=== PATIENT | female | born 1965 | race Caucasian/White ===

== ENCOUNTER → 2016-11-01 | Outpatient (CLI) | payer OTHER ==
[~2016-11-01] MED LIST: ATEN50TA2 PO; BUPR150T5; CLAR10CA3 PO; ECOT81TA5 PO; ESCI10TA2; LISINOPRIL-HCTZ; METF1000; SYNT25TA; XARE10TA PO
--- NOTE | 2016-11-02 07:33 | REP ---
RIGHT FOOT SERIES: Four views. HISTORY: Right foot pain. FINDINGS: There is plantar calcaneal spurring and some mild midfoot spurring. Overall mineralization pattern is normal. No bony erosive changes seen. No soft tissue gas is appreciated. IMPRESSION: Mild midfoot and plantar calcaneal spurring. No acute bony abnormality. Signed by Carlos Manuel Rodriguez MD 11/02/2016 08:13 A
== END ==
LOC: M LRY 18:15
PROVIDERS: ATTEND Nurse Practitioner Family
DX: M77.31 Calcaneal spur, right foot (principal)
CPT/HCPCS: 73630; G0463

== ENCOUNTER 2016-11-13 11:16 | Emergency (ER) | payer OTHER ==
[2016-11-13] MEDS ORDERED: BUPR150T5 (11:39)
[2016-11-13] MEDS ORDERED: CLAR10CA3 PO (11:39)
[2016-11-13] MEDS ORDERED: LISINOPRIL-HCTZ (11:39)
[2016-11-13] MEDS ORDERED: SYNT25TA (11:39)
[2016-11-13] MEDS ORDERED: METF1000 (11:39)
[2016-11-13] MEDS ORDERED: ESCI10TA2 (11:39)
[2016-11-13] MEDS ORDERED: ASPIRIN 81 MG CHEW TABLET PO ONE (11:45)
[2016-11-13] MEDS ORDERED: METOPROLOL TART 50 MG TAB PO ONE (11:45)
[2016-11-13 12:12] LABS: BASO # 0.1 K/mm3 (0.0-0.2); BASO % 0.8 % (0.0-1.0); EOS # 0.2 K/mm3 (0.0-0.50); EOS % 2.1 % (0.0-3.0); LARGE UNSTAINED CELL # 0.1 K/mm3 (0.0-0.4); LARGE UNSTAINED CELL % 0.8 % (0.0-4.0); LYMPH # 1.1 K/mm3 (1.5-4.5); LYMPH % 13.2 % (24.0-44.0); MEAN CORPUSCULAR HEMOGLOBIN 27.5 pg (27.0-33.0); MEAN CORPUSCULAR HGB CONC 32.2 g/dl (32.0-36.5); MEAN CORPUSCULAR VOLUME 85.4 fl (80.0-96.0); MONO # 0.2 K/mm3 (0.0-0.8); MONO % 2.9 % (0.0-5.0); NEUTROPHILS # 6.5 K/mm3 (1.8-7.7); NEUTROPHILS % 80.2 % (36.0-66.0); PLATELET COUNT, AUTOMATED 236 k/mm3 (150-450); RED CELL DISTRIBUTION WIDTH 13.9 % (11.5-14.5); WHITE BLOOD COUNT 8.1 K/mm3 (4.0-10.0)
[2016-11-13] MEDS ORDERED: ECOT81TA5 PO (12:15)
--- NOTE | 2016-11-13 12:19 | REP ---
Clinical: Chest Pain. Comparison: 09/19/2008. Findings: Underpenetration due to technique accentuates the pulmonary vasculature and interstitium, and mild pulmonary vascular congestion cannot be excluded. The mediastinum and cardiac silhouette are stable and within normal limits for portable technique. No obvious focal consolidation, effusion, or pneumothorax identified. Skeletal structures are intact. Impression: Cannot exclude mild pulmonary vascular congestion or trace atelectasis. Signed by Isaias Woodson MD 11/13/2016 12:10 P
[2016-11-13 12:20] LABS: INR 1.1
[2016-11-13] MEDS: METOPROLOL 5 MG/5 ML VIAL IV SCH ×3 (12:22→12:55)
[2016-11-13 12:28] LABS: ALBUMIN 3.7 GM/DL (3.2-5.2); ALBUMIN/GLOBULIN RATIO 0.95 (1.00-1.93); ALKALINE PHOSPHATASE 64 U/L (45-117); ALT/SGPT 31 U/L (12-78); ANION GAP 9 MEQ/L (8-16); AST/SGOT 14 U/L (15-37); BILIRUBIN,DIRECT 0.2 MG/DL (0.0-0.2); BILIRUBIN,TOTAL 0.6 MG/DL (0.2-1.0); BLOOD UREA NITROGEN 18 MG/DL (7-18); CALCIUM LEVEL 8.9 MG/DL (8.5-10.1); CARBON DIOXIDE LEVEL 28 MEQ/L (21-32); CHLORIDE LEVEL 102 MEQ/L (98-107); CREATININE FOR GFR 0.86 MG/DL (0.55-1.02); FREE T4 1.32 NG/DL (0.76-1.46); GLOMERULAR FILTRATION RATE > 60.0 (>51); GLUCOSE, FASTING 101 MG/DL (70-105); POTASSIUM SERUM 3.6 MEQ/L (3.5-5.1); SODIUM LEVEL 139 MEQ/L (136-145); TOTAL PROTEIN 7.6 GM/DL (6.4-8.2)
[2016-11-13] MEDS ORDERED: ISOVUE-370 76% 100ML VIAL (Q9967) As Ordered ONE (13:26)
--- NOTE | 2016-11-13 14:06 | REP ---
CT of the chest with IV contrast, CT pulmonary angiography: A note from the x-ray technologist states that the intravenous contrast injection was suspended hardware through the injection site and over pressure and an the injection resumed. There is adequate opacification of the pulmonary arteries. There are no emboli in the pulmonary trunk or in the central pulmonary arteries. There is focal discoid atelectasis anteriorly in the right upper lobe. There is diffuse haziness throughout the lung henderson bilaterally. This is non specific and could represent normal long interspersed by focal areas of bullous formation. Alternatively, the AC lung henderson could represent infiltrates. There are no comparison CT studies to assist with this differentiation. There are no pleural effusions. There is no mediastinal, hilar or axillary lymphadenopathy. The thoracic aorta is unremarkable. Cardiac size is borderline enlarged. There is no pericardial effusion. The visualized upper abdominal contents are unremarkable. Impression: There are no pulmonary emboli. There is diffuse haziness throughout the lung henderson bilaterally, nonspecific in the absence of comparison studies, as discussed above. No adenopathy. No pleural effusion. Borderline cardiac size. Signed by Juan Francisco Sue MD 11/13/2016 01:57 P
[2016-11-13] MEDS ORDERED: XARE10TA PO (14:37)
[2016-11-13] MEDS ORDERED: ATEN50TA2 PO (14:37)
[2016-11-13] MEDS ORDERED: ATENOLOL 50 MG TAB PO ONE ×2 (15:45→17:00)
[2016-11-13 17:00] VITALS: BP 160/80
[2016-11-13] MEDS ORDERED: RIVAROXABAN 20 MG TAB (XARELTO) PO ONE (17:00)
[2016-11-13 17:34] VITALS: BP 139/79
--- NOTE | 2016-11-14 14:20 | ECGEPIP ---
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
== END 2016-11-13 18:15 | disposition home or self-care (01) ==
LOC: EDBD 11:16 → M ED 12:02
DX: I48.91 Unspecified atrial fibrillation (principal)
CPT/HCPCS: 71010; 71275; 80048; 80076; 82550; 82553; 83690; 83880; 84439; 84443; 85025; 85610; 85730; 87040; 93005; 93041; 94760; 96374; 99285; Q9967

== ENCOUNTER → 2017-02-09 | Outpatient (REF) | payer OTHER ==
[~2017-02-09] MED LIST changes: -METF1000; +METF10004
[2017-02-09 18:35] LABS: ALBUMIN 3.7 GM/DL (3.2-5.2); ALKALINE PHOSPHATASE 76 U/L (45-117); ALT/SGPT 24 U/L (12-78); ANION GAP 8 MEQ/L (8-16); AST/SGOT 11 U/L (15-37); BILIRUBIN,TOTAL 0.3 MG/DL (0.2-1.0); BLOOD UREA NITROGEN 17 MG/DL (7-18); CALCIUM LEVEL 9.3 MG/DL (8.5-10.1); CARBON DIOXIDE LEVEL 28 MEQ/L (21-32); CHLORIDE LEVEL 105 MEQ/L (98-107); CHOLESTEROL LEVEL 154 MG/DL (<200); CREATININE FOR GFR 0.84 MG/DL (0.55-1.02); GLOMERULAR FILTRATION RATE > 60.0 (>51); GLUCOSE, FASTING 97 MG/DL (70-105); POTASSIUM SERUM 4.2 MEQ/L (3.5-5.1); SODIUM LEVEL 141 MEQ/L (136-145); TOTAL PROTEIN 7.4 GM/DL (6.4-8.2); TRIGLYCERIDES LEVEL 146 MG/DL (<150)
== END ==
LOC: M SFHCLERA 09:46
PROVIDERS: ATTEND Family Medicine
DX: I10 Essential (primary) hypertension (principal); E11.9 Type 2 diabetes mellitus without complications

== ENCOUNTER 2017-05-13 16:07 | Emergency (ER) | payer OTHER ==
[~2017-05-13] VITALS: Ht 162.6 cm; Wt 181.8 kg
[2017-05-13] MEDS ORDERED: LEVO25TA5 (16:19)
[2017-05-13] MEDS ORDERED: ENTR1TAB (16:19)
[2017-05-13] MEDS ORDERED: ALLO100T (16:19)
[2017-05-13] MEDS ORDERED: DIGO0.25 (16:19)
[2017-05-13] MEDS ORDERED: XARE20TA (16:19)
[2017-05-13] MEDS ORDERED: TOPR200T (16:19)
[2017-05-13] MEDS ORDERED: CHLO125TA (16:19)
[2017-05-13] MEDS ORDERED: NS 1,000 ML IV ONE (18:15)
[2017-05-13] MEDS ORDERED: ONDANSETRON 4MG/2ML VIAL (J2405) IV ONE (18:15)
[2017-05-13 18:25] LABS: CONTROL LINE UCG INT CTR LINE PRESENT
[2017-05-13 18:41] LABS: BASO # 0.1 10^3/uL (0.0-0.2); BASO % 0.7 % (0.0-1.0); EOS # 0.1 10^3/uL (0.0-0.50); EOS % 1.2 % (0.0-3.0); IMMATURE GRANULOCYTE % 0.4 % (0-0); LYMPH # 1.1 10^3/uL (1.5-4.5); LYMPH % 11.4 % (24.0-44.0); MEAN CORPUSCULAR HGB CONC 32.7 g/dl (32.0-36.5); MEAN CORPUSCULAR VOLUME 88.7 fl (80.0-96.0); MONO # 0.3 10^3/uL (0.0-0.8); MONO % 2.9 % (0.0-5.0); NEUTROPHILS # 7.8 10^3/uL (1.8-7.7); NEUTROPHILS % 83.4 % (36.0-66.0); PLATELET COUNT, AUTOMATED 191 10^3/uL (150-450); RED CELL DISTRIBUTION WIDTH 13.1 % (11.5-14.5); WHITE BLOOD COUNT 9.4 10^3/uL (4.0-10.0)
[2017-05-13 18:52] LABS: INR 1.46
[2017-05-13 19:04] LABS: PLT CLUMPS? POS FLAG; POS COUNT POS FLAG
--- NOTE | 2017-05-13 19:21 | REP ---
Clinical: Pelvic pain and vaginal bleeding. Technique: Transabdominal pelvic ultrasound followed by transvaginal examination for better evaluation of the endometrium and adnexa. Findings: Examination is severely limited due to body habitus and associated technical factors. Heterogeneous myomatous anteverted uterus measures 13.9 x 8.5 x 7.1 cm. The endometrial complex is distended by complex material likely hemorrhagic measuring greater than 30 mm. IUD is identified extending into the lower uterine segment/cervix. Ovaries are not visualized. No obvious pelvic free fluid. Impression: 1. Extremely limited examination with enlarged, heterogeneous myomatous uterus. Presumed hemorrhagic debris distends the endocervical canal to greater than 30 mm. IUD identified extending into the lower uterine segment/cervix. 2. Ovaries not visualized. Signed by Isaias Woodson MD 05/13/2017 07:12 P
[2017-05-13 19:45] LABS: ANION GAP 9 MEQ/L (8-16); BLOOD UREA NITROGEN 11 MG/DL (7-18); CALCIUM LEVEL 8.6 MG/DL (8.5-10.1); CARBON DIOXIDE LEVEL 26 MEQ/L (21-32); CHLORIDE LEVEL 101 MEQ/L (98-107); CREATININE FOR GFR 0.81 MG/DL (0.55-1.02); GLOMERULAR FILTRATION RATE > 60.0 (>51); GLUCOSE, FASTING 124 MG/DL (70-105); POTASSIUM SERUM 3.3 MEQ/L (3.5-5.1); SODIUM LEVEL 136 MEQ/L (136-145)
[2017-05-13] MEDS ORDERED: MORPHINE 2 MG/ML 1ML SYRINGE IV ONE (20:15)
[2017-05-13 20:42] VITALS: BP 155/94
[2017-05-13] MEDS ORDERED: NORCOTAB PO (20:50)
== END 2017-05-13 20:51 | disposition home or self-care (01) ==
LOC: M ED 16:07
DX: N93.9 Abnormal uterine and vaginal bleeding, unspecified (principal); R10.2 Pelvic and perineal pain; Z98.84 Bariatric surgery status
CPT/HCPCS: 76830; 76856; 80048; 81001; 84703; 85025; 85610; 93976; 96374; 96375; 99284; J2405

== ENCOUNTER 2017-05-21 14:04 | Inpatient (IN) | payer OTHER ==
[~2017-05-21] VITALS: Ht 162.6 cm; Wt 162.7 kg
[~2017-05-21 14:04] MED LIST changes: +ALLO100T; +CHLO125TA; +DIGO0.25; +ENTR1TAB; +LEVO25TA5; +NORCOTAB PO; +TOPR200T; +XARE20TA
[2017-05-21] MEDS ORDERED: NS 1,000 ML IV ONE ×2 (17:00→18:00)
[2017-05-21 17:17] LABS: ALBUMIN 3.4 GM/DL (3.2-5.2); ALBUMIN/GLOBULIN RATIO 0.97 (1.00-1.93); ALKALINE PHOSPHATASE 52 U/L (45-117); ALT/SGPT 21 U/L (12-78); ANION GAP 8 MEQ/L (8-16); AST/SGOT 9 U/L (7-37); BILIRUBIN,DIRECT < 0.1 MG/DL (0.0-0.2); BILIRUBIN,TOTAL 0.2 MG/DL (0.2-1.0); BLOOD UREA NITROGEN 18 MG/DL (7-18); CARBON DIOXIDE LEVEL 29 MEQ/L (21-32); CHLORIDE LEVEL 101 MEQ/L (98-107); GLOMERULAR FILTRATION RATE > 60.0 (>51); GLUCOSE, FASTING 111 MG/DL (70-105); HCG, SERUM QUANTITATIVE < 1.0 MIU/ML; POTASSIUM SERUM 3.1 MEQ/L (3.5-5.1); SODIUM LEVEL 138 MEQ/L (136-145); TOTAL PROTEIN 6.9 GM/DL (6.4-8.2)
[2017-05-21 17:23] LABS: BASO # 0.1 10^3/uL (0.0-0.2); BASO % 0.7 % (0.0-1.0); EOS # 0.2 10^3/uL (0.0-0.50); EOS % 1.6 % (0.0-3.0); IMMATURE GRANULOCYTE % 1.5 % (0-0); LYMPH # 1.9 10^3/uL (1.5-4.5); LYMPH % 13.5 % (24.0-44.0); MEAN CORPUSCULAR HEMOGLOBIN 28.7 pg (27.0-33.0); MEAN CORPUSCULAR HGB CONC 32.7 g/dl (32.0-36.5); MEAN CORPUSCULAR VOLUME 87.7 fl (80.0-96.0); MONO # 0.5 10^3/uL (0.0-0.8); MONO % 3.8 % (0.0-5.0); NEUTROPHILS # 10.9 10^3/uL (1.8-7.7); NEUTROPHILS % 78.9 % (36.0-66.0); PLATELET COUNT, AUTOMATED 385 10^3/uL (150-450); RED CELL DISTRIBUTION WIDTH 13.2 % (11.5-14.5); WHITE BLOOD COUNT 13.8 10^3/uL (4.0-10.0)
[2017-05-21] MEDS ORDERED: ONDANSETRON 4MG/2ML VIAL (J2405) IV ONE (17:30)
[2017-05-21 17:33] LABS: INR 2.06
[2017-05-21] MEDS ORDERED: LEXA1TAB PO (18:44)
[2017-05-21] MEDS ORDERED: ENTR1TAB PO (18:44)
[2017-05-21] MEDS ORDERED: XARE20TA PO (18:44)
[2017-05-21] MEDS ORDERED: METO-398 PO (18:44)
[2017-05-21] MEDS ORDERED: METF10004 PO (18:44)
[2017-05-21] MEDS ORDERED: BUPR150T3 PO (18:44)
[2017-05-21] MEDS ORDERED: DIGO0.25 PO (18:44)
[2017-05-21] MEDS ORDERED: LORA10TA2 PO (18:44)
[2017-05-21] MEDS ORDERED: CHLO25TA PO (18:44)
[2017-05-21] MEDS ORDERED: ALLO100T PO (18:44)
[2017-05-21] MEDS ORDERED: LEVO25TA34 PO (18:44)
[2017-05-21 20:06] LABS: DIGOXIN LEVEL 1.2 NG/ML (0.5-2.0)
[2017-05-21] MEDS ORDERED: DEXTROSE 50% 50 ML SYRINGE IV PRN (20:15)
[2017-05-21] MEDS ORDERED: GLUCAGON FOR INJ 1 MG VIAL (J1610) SC PRN (20:15)
[2017-05-21] MEDS ORDERED: ONDANSETRON 4MG/2ML VIAL (J2405) IV PRN (20:15)
[2017-05-21] MEDS ORDERED: GLUCOSE 4 GM CHEW TABLET PO PRN (20:15)
[2017-05-21] MEDS ORDERED: ACETAMINOPHEN TAB 650MG DOSE (2X325MG) PO PRN (20:15)
[2017-05-21] MEDS: HumaLOG INSULIN (NovoLOG) PER UNIT SC SCH (21:00)
[2017-05-21] MEDS ORDERED: POTASSIUM CHLORIDE 10 MEQ SR TABLET PO ONE (21:15)
--- NOTE | 2017-05-21 21:29 | HPEPDOC ---
General Date of Admission May 21, 2017 at 20:01 Chief Complaint The patient is a 52-year-old female admitted with a reason for visit of Menorrhagia With Irregular Cycle. History of Present Illness 52-year-old female with past medical history of nonischemic cardiomyopathy diagnosed in October 2016, atrial fibrillation on Xarelto, hypertension, gout, hypothyroidism, diabetes mellitus, morbid obesity, and obstructive sleep apnea on CPAP presented to the ER from her BANK APPRAISER (Dr. Johnson's) office with the chief complaint of increased menstrual bleeding over the last 1 month. The patient states that her menstrual bleeding has increased over the last one week. Lab work drawn from 8 days ago reveals a hemoglobin drop of nearly 5 g. The patient denied any complaints of fevers, chills, chest pain, shortness of breath, palpitations, abdominal pain, or any nausea/vomiting/diarrhea. However, the patient did state generalized weakness and fatigue. The patient will be admitted to the hospitalist service for blood transfusion. A consult has been placed to BANK APPRAISER for further evaluation and management of menstrual bleeding. Home Medications Scheduled Allopurinol (Allopurinol) 100 Mg Tab, 200 MG PO DAILY, (Reported) Bupropion Hcl (Bupropion HCl Xl) 150 Mg Tab, 150 MG PO DAILY, (Reported) Chlorthalidone (Chlorthalidone) 25 Mg Tab, 12.5 MG PO DAILY, (Reported) Digoxin (Digoxin) 250 Mcg Tab, 250 MCG PO DAILY, (Reported) Escitalopram Oxalate (Lexapro) 10 Mg Tab, 10 MG PO DAILY, (Reported) Levothyroxine Sodium (Levoxyl) 25 Mcg Tab, 25 MCG PO DAILY, (Reported) Loratadine (Loratadine) 10 Mg Tab, 10 MG PO DAILY, (Reported) Metformin Hydrochloride (Metformin HCl) 1,000 Mg Tab, 1,000 MG PO BID, (Reported ) Metoprolol Succinate (Metoprolol Succinate ER) 200 Mg Tab, 200 MG PO DAILY, ( Reported) Rivaroxaban (Xarelto) 20 Mg Tab, 20 MG PO DAILY, (Reported) Sacubitril/Valsartan (Entresto 24-26 mg) 1 Tab Tab, 1 TAB PO BID, (Reported) Allergies Coded Allergies: Sulfate (Verified Allergy, Unknown, 05/21/17) Past Medical History Medical History As noted in HPI. Surgical History STOMACH STAPLE 1986 MARTINA STALLWORTH 1987 GALLBLADDER REMOVED 1990 #2 - C - SECTIONS LEFT AND RIGHT CARPEL TUNNEL SINUS Social History * Smoker: Denies Alcohol: occationally Drugs: denies Review of Symptoms Other systems 10 point review of systems negative unless otherwise specified in HPI. Physical Examination General Exam: Positive: Alert, Cooperative, No Acute Distress, Other (morbidly obese) ENT Exam: Positive: Atraumatic, Mucous membr. moist/pink Neck Exam: Negative: JVD Chest Exam: Positive: Clear to auscultation, Normal air movement Heart Exam: Positive: Rate Normal, Irregular Rhythm, Normal S1, Normal S2 Telemetry: Positive: Atrial fibrillation Abdomen Exam: Positive: Soft, Negative: Tenderness Extremity Exam: Negative: Tenderness Psych Exam: Positive: Oriented x 3 Vital Signs Vital Signs Date Time Temp Pulse Resp B/P (MAP) Pulse Ox O2 Delivery O2 Flow Rate FiO2 05/21/17 21:04 70 20 96 05/21/17 20:45 110/52 (71) 05/21/17 14:04 97.9 Room Air Laboratory Data Labs 24H Laboratory Tests 2 05/21/17 16:42: Immature Granulocyte % (Auto) 1.5H, White Blood Count 13.8H, Red Blood Count 3.10L, Hemoglobin 8.9L, Hematocrit 27.2L, Mean Corpuscular Volume 87.7, Mean Corpuscular Hemoglobin 28.7, Mean Corpuscular Hemoglobin Concent 32.7, Red Cell Distribution Width 13.2, Platelet Count 385, Neutrophils (%) (Auto) 78.9H, Lymphocytes (%) (Auto) 13.5L, Monocytes (%) (Auto) 3.8, Eosinophils (%) (Auto) 1.6, Basophils (%) (Auto) 0.7, Neutrophils # (Auto) 10.9H, Lymphocytes # (Auto) 1.9, Monocytes # (Auto) 0.5, Eosinophils # (Auto) 0.2, Basophils # (Auto) 0.1, Immature Granulocyte # (Auto) 0.2H, Nucleated Red Blood Cells % (auto) 0.0, Prothrombin Time 23.9H, Prothromb Time International Ratio 2.06, Activated Partial Thromboplast Time 38.8H, Anion Gap 8, Glomerular Filtration Rate > 60.0 , Calcium Level 9.0, Aspartate Amino Transf (AST/SGOT) 9, Alanine Aminotransferase (ALT/SGPT) 21, Alkaline Phosphatase 52, Total Bilirubin 0.2, Direct Bilirubin < 0.1, Total Creatine Kinase 35, Creatine Kinase MB 1.0, Creatine Kinase MB Relative Index 2.85, Troponin I < 0.02, Total Protein 6.9, Albumin 3.4, Albumin/Globulin Ratio 0.97L, Human Chorionic Gonadotropin, Quant < 1.0, Digoxin Level 1.2 CBC/BMP Laboratory Tests 05/21/17 16:42 Red Blood Count 3.10 L, Mean Corpuscular Volume 87.7, Mean Corpuscular Hemoglobin 28.7, Mean Corpuscular Hemoglobin Concent 32.7, Red Cell Distribution Width 13.2, Neutrophils (%) (Auto) 78.9 H, Lymphocytes (%) (Auto) 13.5 L, Monocytes (%) (Auto) 3.8, Eosinophils (%) (Auto) 1.6, Basophils (%) ( Auto) 0.7, Neutrophils # (Auto) 10.9 H, Lymphocytes # (Auto) 1.9, Monocytes # ( Auto) 0.5, Eosinophils # (Auto) 0.2, Basophils # (Auto) 0.1 Plan / VTE VTE Prophylaxis Ordered?: Yes Plan Plan Menorrhagia Hgb dropped from 13.6 to 8.9 over the last 8 days 2 Units of PRBC's ordered, we will serially trend H&H Xarelto held---I did speak to the patient's Stamping Die Try Out Worker, Dr. Rosenbaum about the patient's current clinical scenario--he has advised that we hold the patient's anticoagulation at this time. He reports that the patient was initially noted to have nonischemic cardiomyopathy in October 2016, however a subsequent stress test has been negative. In addition, the patient did have an echocardiogram done about one month ago, which he states reports an improvement of the EF to near normal limits (50%) after optimization of medical therapy. He has cleared the patient for possible D&C and/or Hysteroscopy. BANK APPRAISER consulted Hypertension, stable Continue regimen as ordered Atrial Fibrillation Rate controlled on Metoprolol, Digoxin Xarelto held as noted above Nonischemic CMP Patient's EF has improved to near normal EF (50%) on repeat ECHO 1 month ago with medical treatment according to patient's Stamping Die Try Out Worker Dr. Rosenbaum Cont meds as ordered Gout Continue allopurinol Hypothyroidism Continue levothyroxine Diabetes mellitus ISS ordered Morbid obesity Complicating medical care Obstructive sleep apnea May use own CPAP DVT Prophylaxis SCDs/TEDs The patient will be admitted under the service of Dr. Graham, who will begin to follow the patient on 05/22/17 at 7 AM. RUCHI GEE MD May 21, 2017 21:29
[2017-05-21 22:30] VITALS: BP 139/64
[2017-05-21] MEDS: ENTRESTO 24-26MG TABLET (SACUBITRIL/VALSARTAN) PO SCH (23:32)
[2017-05-22 04:21] LABS: MEAN CORPUSCULAR HEMOGLOBIN 29.4 pg (27.0-33.0); MEAN CORPUSCULAR HGB CONC 33.2 g/dl (32.0-36.5); MEAN CORPUSCULAR VOLUME 88.5 fl (80.0-96.0); RED CELL DISTRIBUTION WIDTH 13.1 % (11.5-14.5); WHITE BLOOD COUNT 10.5 10^3/uL (4.0-10.0)
[2017-05-22 04:38] LABS: PLATELET COUNT, AUTOMATED 265 10^3/uL (150-450)
[2017-05-22 05:05] LABS: ALBUMIN 2.9 GM/DL (3.2-5.2); ALBUMIN/GLOBULIN RATIO 0.88 (1.00-1.93); ALKALINE PHOSPHATASE 52 U/L (45-117); ALT/SGPT 18 U/L (12-78); ANION GAP 7 MEQ/L (8-16); AST/SGOT 7 U/L (7-37); BILIRUBIN,TOTAL 0.2 MG/DL (0.2-1.0); BLOOD UREA NITROGEN 17 MG/DL (7-18); CALCIUM LEVEL 8.1 MG/DL (8.5-10.1); CARBON DIOXIDE LEVEL 29 MEQ/L (21-32); CHLORIDE LEVEL 104 MEQ/L (98-107); CREATININE FOR GFR 1.02 MG/DL (0.55-1.02); GLOMERULAR FILTRATION RATE > 60.0 (>51); GLUCOSE, FASTING 106 MG/DL (70-105); MAGNESIUM LEVEL 1.2 MG/DL (1.8-2.4); POTASSIUM SERUM 3.2 MEQ/L (3.5-5.1); SODIUM LEVEL 140 MEQ/L (136-145); TOTAL PROTEIN 6.2 GM/DL (6.4-8.2)
[2017-05-22] MEDS: LEVOTHYROXINE 25MCG TABLET (0.025MG) PO SCH (05:55)
[2017-05-22 06:00] VITALS: BP 134/64
[2017-05-22] MEDS: POTASSIUM CHLORIDE 10 MEQ SR TABLET PO SCH ×2 (06:28→08:44)
[2017-05-22] MEDS: HumaLOG INSULIN (NovoLOG) PER UNIT SC SCH ×4 (07:30→20:22)
--- NOTE | 2017-05-22 08:14 | ECGEPIP ---
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
[2017-05-22] MEDS: METOPROLOL SUCC (TopROL XL) 100MG *XL* TAB PO SCH (08:43)
[2017-05-22] MEDS: DIGOXIN 0.25 MG TAB PO SCH (08:44)
[2017-05-22] MEDS: ENTRESTO 24-26MG TABLET (SACUBITRIL/VALSARTAN) PO SCH ×2 (09:00→20:20)
[2017-05-22] MEDS: MAG SULF 1GM/100ML (MAG RUN) 1 GM in APPROPRIATE DILUENT 1 EA IV SCH ×2 (10:46→11:57)
--- NOTE | 2017-05-22 11:17 | IPN ---
DATE: 05/22/2017 Patient seen and examined at the bedside. Chart has been reviewed. This morning, the patient has no complaints of chest pain, pressure or tightness, shortness of breath, lightheadedness, palpitations, or generalized weakness. She feels much improved from yesterday. She has received 3 units of red blood cell (RBC) transfusion, currently with hemoglobin of 9.1 and hematocrit 26.9. She states that she has not soaked one pad since yesterday. Vitals: Temperature 97.8, pulse 67, respiratory rate 18, blood pressure 134/64, 98% on room air. Generally, the patient is awake, alert and oriented times three. Anicteric sclerae. No jaundice. Slight pallor. Dry mucous membranes. Neck is supple. Full range of motion. No cervical lymphadenopathy or thyromegaly. Thick neck. Lungs clear to auscultation. No wheezing, rales or rhonchi. Heart: S1, S2. Sinus rhythm. Abdomen is obese, soft, nontender, nondistended. Positive bowel sounds. Extremities: No cyanosis, clubbing. Skin: Warm, dry, well perfused. LABORATORY DATA: White count 10.5, hemoglobin 9.1, hematocrit 26.9, platelet count 265. Sodium 140, potassium 3.2, chloride 104, bicarbonate 29, BUN 17, creatinine 1, glucose 106, magnesium 1.2. Albumin 2.9. Pelvic ultrasound on 05/13/2017 presumed hemorrhagic debris distends the endocervical canal to greater than 30 mm. IUD identified in lower uterine segment/cervix. Ovaries are not visualized. ASSESSMENT AND PLAN: This is a 52-year-old female with history of nonischemic cardiomyopathy diagnosed in October 2016, atrial fibrillation on chronic Xarelto, hypertension, gout, hypothyroidism, diabetes, morbid obesity, and obstructive sleep apnea on C-PAP who presented to the emergency room (ER) from Dr. Johnson's office who complains of menorrhagia over the past month, increasing weakness, hemoglobin dropped to 5, and patient is admitted under the hospitalist service for the following issues: 1. Acute blood loss anemia secondary to menorrhagia. Status post 3 units or red blood cell transfusion. The patient has baseline hemoglobin of 13.6. Xarelto had been held. Advise that we hold anticoagulation. The patient was known to have nonischemic cardiomyopathy in October 2016, but subsequent stress test had been negative. An echo a month ago showed improvement in ejection fraction to normal of 50% after optimization with medical therapy and clear the patient for dilation and curettage (D and C) and possible hysteroscopy. OB-NATURAL SCIENCE CURATOR has been consulted for menorrhagia. 2. Hypertension. Stable. 3. Atrial fibrillation, rate controlled on metoprolol and digoxin. Xarelto held due to acute blood loss anemia from menorrhagia and ischemic cardiomyopathy. Ejection fraction improved on repeat echo, ejection fraction 50% a month ago with medical treatment according to patient's cash register mechanic Dr. Rosenbaum. 4. Gout, on allopurinol. 5. Hypothyroidism. Levothyroxine. 6. Type 2 diabetes. On sliding scale. Hyperglycemic protocol. 7. Morbid obesity. Body mass index (BMI) 66.2. 8. History of obstructive sleep apnea (TESSA). Continue on home C-PAP and TESSA protocol.
[2017-05-22] MEDS: ALLOPURINOL 100 MG TAB PO SCH (11:57)
[2017-05-22] MEDS: buPROPion **XL** TABLET 150MG (WELLBUTRIN XL) PO SCH (11:57)
[2017-05-22] MEDS: ESCITALOPRAM OXALATE 10 MG TAB (LEXAPRO) PO SCH (11:57)
[2017-05-22] MEDS: LORATADINE 10 MG TAB PO SCH (11:57)
[2017-05-22 13:30] VITALS: BP 125/71
[2017-05-22] MEDS ORDERED: MEGE40TA GT (14:14)
[2017-05-22] MEDS ORDERED: FERR325T3 PO (14:38)
[2017-05-22] MEDS ORDERED: VITA500T88 PO (14:38)
[2017-05-22] MEDS ORDERED: SENO17.2 PO (14:38)
[2017-05-22] MEDS ORDERED: MEGE40TA PO (14:42)
[2017-05-22 15:11] LABS: MAGNESIUM LEVEL 1.8 MG/DL (1.8-2.4); POTASSIUM SERUM 3.9 MEQ/L (3.5-5.1)
[2017-05-22 15:30] VITALS: BP 131/68
[2017-05-22] MEDS: MEGESTROL 40 MG TAB PO SCH (16:45)
--- NOTE | 2017-05-22 17:10 | CR ---
DATE OF CONSULTATION: 05/22/2017 REASON FOR CONSULTATION: Acute bleeding with a history of menometrorrhagia. HISTORY: Lorri is a 52-year-old female with morbid obesity and multiple chronic medical issues, currently has a diagnosis of atrial fibrillation on Xarelto. She also has a history of diabetes, hypothyroidism, chronic hypertension, chronic obstructive pulmonary disease (COPD), and gout. She presented to the office yesterday for evaluation after being seen in the emergency room for bleeding. She had an acute episode of bleeding and drop of her hemoglobin x 5 grams. She was then admitted to the hospital for blood transfusion and further monitoring and possible D and C. Upon my evaluation of her this morning, she had received 3 units of packed red blood cells (RBC). Her hemoglobin was 9.1 over 26.9. However her bleeding has completely decreased to the point that she has not soaked a pad since her admission. PAST MEDICAL HISTORY: Her chart completely reviewed. She is being seen by cardiology Dr. Rosenbaum and has had an echocardiogram done few months ago which was a 50% ejection fraction. A complete review of her chart was done. PHYSICAL EXAMINATION: Vital signs: Her blood pressure was 134/64, pulse 67, temperature was 97.8. She is a morbidly obese, very pleasant female, in no acute distress. Her abdomen was soft, nontender, nondistended. Extremities: No clubbing, cyanosis or edema. Vaginal exam done. The patient had a pad on with a scant amount of bleeding. Her vagina inspected. No gross bleeding. No evidence of any clot. She does have mild oozing at the cervical os. Her ultrasound done on 05/13/2017 reviewed and shows an enlarged uterus, approximately 13-14 cm in size with a thickened endometrium consistent with blood products. She does have an IUD in place that placed approximately 3 years ago. The string was not visualized on examination, but the IUD was seen on the ultrasound. ASSESSMENT 1. Menometrorrhagia with acute bleed. 2. Anemia secondary to acute bleeding. 3. Nonischemic cardiomyopathy diagnosed in October 2016. 4. Atrial fibrillation, on chronic Xarelto. 5. Hypertension. 6. Gout. 7. Hypothyroidism. 8. Diabetes. 9. Morbid obesity. 10. Obstructive sleep apnea, on C-PAP. PLAN: After extensive counseling with the hospitalist as well as Dr. Rosenbaum, a decision was made not to take this patient to the operating room at this point given that her bleeding has improved. She will need further outpatient evaluation and future plan of an endometrial biopsy followed by a hysterectomy. Given the patient's current medical condition it is felt that it would be beneficial for the patient to be optimized from a medical and cardiac standpoint prior to taking her to the operating room and if at all possible minimize the amount of time she is placed under anesthesia. This was discussed with the patient and her mother in great detail. Both agreed to followup in the office for possible endometrial biopsy to rule out any endometrial cancer or abnormal cells and she will then proceed to hysterectomy down the road. At this point she is offered a script for Megace to help keep the bleeding from reoccurring, however, she is aware that if this does not work for her she will need to return immediately and possibly have emergent surgery if need be. The at this point the patient is okay to be discharged from a DAIRY FEED MIXING OPERATOR standpoint. She will followup in the office in approximately 4-5 days. Health Services thank you
[2017-05-22 22:00] VITALS: BP 132/66
[2017-05-22 23:33] LABS: ANION GAP 6 MEQ/L (8-16); BLOOD UREA NITROGEN 15 MG/DL (7-18); CALCIUM LEVEL 8.3 MG/DL (8.5-10.1); CARBON DIOXIDE LEVEL 32 MEQ/L (21-32); CHLORIDE LEVEL 103 MEQ/L (98-107); CREATININE FOR GFR 0.94 MG/DL (0.55-1.02); GLOMERULAR FILTRATION RATE > 60.0 (>51); GLUCOSE, FASTING 109 MG/DL (70-105); MAGNESIUM LEVEL 1.8 MG/DL (1.8-2.4); POTASSIUM SERUM 3.5 MEQ/L (3.5-5.1); SODIUM LEVEL 141 MEQ/L (136-145)
[2017-05-23] MEDS: LEVOTHYROXINE 25MCG TABLET (0.025MG) PO SCH (05:49)
[2017-05-23 06:00] VITALS: BP 128/60
[2017-05-23 06:17] LABS: ANION GAP 6 MEQ/L (8-16); BLOOD UREA NITROGEN 14 MG/DL (7-18); CARBON DIOXIDE LEVEL 30 MEQ/L (21-32); CHLORIDE LEVEL 106 MEQ/L (98-107); CREATININE FOR GFR 0.79 MG/DL (0.55-1.02); GLOMERULAR FILTRATION RATE > 60.0 (>51); GLUCOSE, FASTING 113 MG/DL (70-105); MAGNESIUM LEVEL 1.7 MG/DL (1.8-2.4); POTASSIUM SERUM 3.3 MEQ/L (3.5-5.1); SODIUM LEVEL 142 MEQ/L (136-145)
[2017-05-23] MEDS: ESCITALOPRAM OXALATE 10 MG TAB (LEXAPRO) PO SCH (07:53)
[2017-05-23] MEDS: ENTRESTO 24-26MG TABLET (SACUBITRIL/VALSARTAN) PO SCH (07:54)
[2017-05-23] MEDS: buPROPion **XL** TABLET 150MG (WELLBUTRIN XL) PO SCH (07:54)
[2017-05-23] MEDS: DIGOXIN 0.25 MG TAB PO SCH (07:54)
[2017-05-23] MEDS: MEGESTROL 40 MG TAB PO SCH (07:54)
[2017-05-23 07:55] VITALS: BP 128/60
[2017-05-23] MEDS: LORATADINE 10 MG TAB PO SCH (07:55)
[2017-05-23] MEDS: ALLOPURINOL 100 MG TAB PO SCH (07:55)
[2017-05-23] MEDS: METOPROLOL SUCC (TopROL XL) 100MG *XL* TAB PO SCH (07:55)
[2017-05-23] MEDS: HumaLOG INSULIN (NovoLOG) PER UNIT SC SCH ×2 (07:56→13:01)
[2017-05-23] MEDS ORDERED: INFLUENZA QUADRIVALENT PF VACCINE 0.5ML SYRINGE (90686) IM ONE (09:00)
[2017-05-23] MEDS ORDERED: MAG SULF 1GM/100ML (MAG RUN) 1 GM in APPROPRIATE DILUENT 1 EA IV ONE (10:00)
[2017-05-23] MEDS ORDERED: POTASSIUM CHLORIDE 10 MEQ SR TABLET PO ONE (10:00)
--- NOTE | 2017-05-23 14:02 | DSES ---
DATE OF ADMISSION: 05/21/2017 DATE OF DISCHARGE: CONSULTANTS DURING THIS ADMISSION: Dr. Neo Johnson, OB-DITCHER OPERATOR. PREDATORY GAME HUNTER: Dr. Rosenbaum has been made aware of patient's admission and had been in consult by telephone, but not formally. PRIMARY DISCHARGE DIAGNOSES: 1. Menometrorrhagia. 2. Acute blood anemia requiring four units of red blood cell transfusion. 3. History of atrial fibrillation on chronic Eliquis. 4. Nonischemic cardiomyopathy with improvement in ejection fraction (EF) of 50%. 5. Hypertension. 6. Gout. 7. Hypothyroidism. 8. Morbid obesity with obstructive sleep apnea on CPAP, follows with information assurance manager. 9. Type 2 diabetes. DISCHARGE MEDICATIONS: - vitamin C 500 mg daily - ferrous sulfate 325 mg by mouth twice a day - megestrol 40 mg daily - Senokot 17.2 mg by mouth daily for constipation - allopurinol 200 daily - bupropion 150 mg daily - chlorthalidone 12.5 mg daily - digoxin 250 mcg daily - Lexapro 10 mg daily - levothyroxine 25 mcg daily - loratadine 10 mg daily - metformin 1 gram twice a day - metoprolol 200 daily - ENTRESTO 1 tablet by mouth twice a day The patient's Xarelto has been discontinued temporarily due to recent acute blood loss anemia requiring 4 units of red blood cell transfusion due to menorrhagia. HOSPITAL COURSE: This is a 52-year-old female with history of nonischemic cardiomyopathy and EF of 50%, atrial fibrillation on chronic Xarelto, diabetes, hypertension, hypothyroidism, gout, and obstructive sleep apnea on CPAP who presents to the emergency room after seeing her industrial roof plumber due to menometrorrhagia with acute bleeding with a drop of hemoglobin of 5 grams. The patient was sent to the emergency room for blood transfusion and further monitoring and possible dilation and curettage (D and C). The patient received 4 units of red blood cell (RBC) transfusion with improvement in symptoms. The patient was seen by Dr. Johnson. Since the patient's bleeding has improved, there is no need for emergent hysterectomy. Plans for the future are endometrial biopsy followed by hysterectomy. The patient will need to be medically optimized and will need to see her factory maintenance technician for formal medical clearance. At this time, the patient was started on Megace 40 mg daily, iron and vitamin supplements. Hemoglobin and hematocrit had been stable and the patient is stable for discharge. She is ambulating well with no symptoms. LABORATORY DATA ON DISCHARGE: White count 10.5, hemoglobin 8.6, hematocrit 26, sodium 142, potassium 3.3, chloride 106, bicarbonate 30, BUN 14, creatinine 0.79, glucose 113, magnesium 1.7. IMAGING STUDIES: Pelvic ultrasound 05/13/2017: Extremely limited exam with enlarged heterogeneous myomatous uterus, presume hemorrhagic debris distends endocervical canal to greater than 30 mm, IUD identified extending into the lower uterine segment or cervix, ovaries not visualized. TIME SPENT ON DISCHARGE: 30 minutes.
== END 2017-05-23 15:30 | disposition home or self-care (01) | DRG 812 ==
LOC: M ED 14:04 → M ED INP 20:01 → M MS4PR 22:27 → M MSPAV 05-22 15:29
PROVIDERS: ADMIT Internal Medicine; ATTEND General Practice
PROC: 30253N1 (ICD-10-PCS; principal; 2017-05-21)
DX: D62 Acute posthemorrhagic anemia (principal); Z68.44 Body mass index [BMI] 60.0-69.9, adult; I42.9 Cardiomyopathy, unspecified; N92.0 Excessive and frequent menstruation with regular cycle; I48.91 Unspecified atrial fibrillation; I10 Essential (primary) hypertension; M10.9 Gout, unspecified; E03.9 Hypothyroidism, unspecified; E11.9 Type 2 diabetes mellitus without complications; E66.01 Morbid (severe) obesity due to excess calories; G47.33 Obstructive sleep apnea (adult) (pediatric); Z79.84 Long term (current) use of oral hypoglycemic drugs; Z79.01 Long term (current) use of anticoagulants; Z79.899 Other long term (current) drug therapy

== ENCOUNTER → 2017-06-12 | Outpatient (CLI) | payer OTHER ==
[~2017-06-12] MED LIST changes: +ALLO100T PO; +BUPR150T3 PO; +CHLO25TA PO; +DIGO0.25 PO; +ENTR1TAB PO; +FERR325T3 PO; +LEVO25TA34 PO; +LEXA1TAB PO; +LORA10TA2 PO; +MEGE40TA GT; +MEGE40TA PO; +METF10004 PO; +METO-398 PO; +SENO17.2 PO; +VITA500T88 PO; +XARE20TA PO
--- NOTE | 2017-06-12 18:04 | REP ---
Clinical: Pain without trauma. Technique: AP, lateral, bilateral oblique views of the right ankle. Findings: No acute fracture dislocation. Joint spaces and ankle mortise are intact and within normal limits. Lateral view demonstrates pes planus. No significant periarticular or soft tissue calcifications identified. Impression: Pes planus. Relatively age-appropriate examination. Signed by Isaias Woodson MD 06/12/2017 02:56 P
--- NOTE | 2017-06-12 18:13 | REP ---
Clinical: Right foot pain Technique: AP, lateral, bilateral oblique views right foot . Findings: The osseous structures and joint spaces are intact and relatively normal for age. There is no evidence for acute fracture or dislocation. Mild subchondral sclerosis and joint space narrowing involving the first metatarsophalangeal joint and interphalangeal joint is appreciated. Lateral view demonstrates mild pes planus. Impression: Mild degenerative changes primarily involving the first toe. Mild pes planus. Signed by Isaias Woodson MD 06/12/2017 03:05 P
== END ==
LOC: M WUC 12:22
PROVIDERS: ATTEND Physician Assistant
DX: M25.571 Pain in right ankle and joints of right foot (principal)

== ENCOUNTER → 2017-06-13 | Outpatient (CLI) | payer OTHER ==
[2017-06-13 11:41] LABS: BASO # 0.1 10^3/uL (0.0-0.2); BASO % 0.8 % (0.0-1.0); EOS # 0.2 10^3/uL (0.0-0.50); EOS % 1.6 % (0.0-3.0); IMMATURE GRANULOCYTE % 0.5 % (0-0); LYMPH # 1.4 10^3/uL (1.5-4.5); LYMPH % 13.1 % (24.0-44.0); MEAN CORPUSCULAR HEMOGLOBIN 27.3 pg (27.0-33.0); MEAN CORPUSCULAR HGB CONC 31.6 g/dl (32.0-36.5); MEAN CORPUSCULAR VOLUME 86.5 fl (80.0-96.0); MONO # 0.5 10^3/uL (0.0-0.8); MONO % 4.8 % (0.0-5.0); NEUTROPHILS # 8.4 10^3/uL (1.8-7.7); NEUTROPHILS % 79.2 % (36.0-66.0); PLATELET COUNT, AUTOMATED 401 10^3/uL (150-450); RED CELL DISTRIBUTION WIDTH 13.2 % (11.5-14.5); WHITE BLOOD COUNT 10.7 10^3/uL (4.0-10.0)
[2017-06-13 12:24] LABS: ALBUMIN 3.7 GM/DL (3.2-5.2); ALBUMIN/GLOBULIN RATIO 0.97 (1.00-1.93); ALKALINE PHOSPHATASE 64 U/L (45-117); ALT/SGPT 15 U/L (12-78); ANION GAP 11 MEQ/L (8-16); AST/SGOT 4 U/L (7-37); BILIRUBIN,TOTAL 0.3 MG/DL (0.2-1.0); BLOOD UREA NITROGEN 15 MG/DL (7-18); CALCIUM LEVEL 9.6 MG/DL (8.5-10.1); CARBON DIOXIDE LEVEL 24 MEQ/L (21-32); CHLORIDE LEVEL 104 MEQ/L (98-107); GLOMERULAR FILTRATION RATE > 60.0 (>51); GLUCOSE, FASTING 92 MG/DL (70-105); POTASSIUM SERUM 4.1 MEQ/L (3.5-5.1); SODIUM LEVEL 139 MEQ/L (136-145); TOTAL PROTEIN 7.5 GM/DL (6.4-8.2)
== END ==
LOC: M WUC 09:51
PROVIDERS: ATTEND Physician Assistant
DX: M79.671 Pain in right foot (principal)

== ENCOUNTER → 2017-07-01 | Outpatient (REF) | payer OTHER ==
[2017-07-01 19:03] LABS: BASO # 0.1 10^3/uL (0.0-0.2); BASO % 0.8 % (0.0-1.0); EOS # 0.2 10^3/uL (0.0-0.50); HEMOGLOBIN 11.8 g/dl (12.0-16.0); IMMATURE GRANULOCYTE % 0.4 % (0-0); LYMPH # 1.7 10^3/uL (1.5-4.5); LYMPH % 16.9 % (24.0-44.0); MEAN CORPUSCULAR HEMOGLOBIN 25.8 pg (27.0-33.0); MEAN CORPUSCULAR HGB CONC 31.1 g/dl (32.0-36.5); MONO # 0.5 10^3/uL (0.0-0.8); MONO % 4.7 % (0.0-5.0); NEUTROPHILS # 7.4 10^3/uL (1.8-7.7); NEUTROPHILS % 75.2 % (36.0-66.0); PLATELET COUNT, AUTOMATED 329 10^3/uL (150-450); RED BLOOD COUNT 4.58 10^6/uL (4.00-5.40); RED CELL DISTRIBUTION WIDTH 13.6 % (11.5-14.5); WHITE BLOOD COUNT 9.8 10^3/uL (4.0-10.0)
[2017-07-01 19:32] LABS: ESTIMATED AVERAGE GLUCOSE 126 MG/DL (60-110)
== END ==
LOC: M SFHCLERA 11:02
DX: Z01.818 Encounter for other preprocedural examination (principal); E11.9 Type 2 diabetes mellitus without complications; E03.9 Hypothyroidism, unspecified

== ENCOUNTER 2017-07-17 08:06 | Day surgery (SDC) | payer OTHER ==
[2017-07-17 08:36] LABS: HEMATOCRIT 39.3 % (36.0-47.0); HEMOGLOBIN 12.5 g/dl (12.0-16.0); MEAN CORPUSCULAR HEMOGLOBIN 25.8 pg (27.0-33.0); MEAN CORPUSCULAR HGB CONC 31.8 g/dl (32.0-36.5); PLATELET COUNT, AUTOMATED 353 10^3/uL (150-450); RED BLOOD COUNT 4.85 10^6/uL (4.00-5.40); RED CELL DISTRIBUTION WIDTH 13.6 % (11.5-14.5)
[2017-07-17] MEDS ORDERED: ceFAZolin 2 GM/D5W 50 ML IV BAG (J0690 PER 500MG) As Ordered (08:45)
[2017-07-17 08:50] LABS: INR 1.07
[2017-07-17 08:51] LABS: PARTIAL THROMBOPLASTIN TIME 32.7 SECONDS (26.8-37.9)
[2017-07-17 09:00] LABS: ALBUMIN 3.8 GM/DL (3.2-5.2); ALBUMIN/GLOBULIN RATIO 1.09 (1.00-1.93); ALKALINE PHOSPHATASE 62 U/L (45-117); ALT/SGPT 17 U/L (12-78); ANION GAP 9 MEQ/L (8-16); AST/SGOT 9 U/L (7-37); BILIRUBIN,TOTAL 0.5 MG/DL (0.2-1.0); BLOOD UREA NITROGEN 12 MG/DL (7-18); CALCIUM LEVEL 8.9 MG/DL (8.5-10.1); CARBON DIOXIDE LEVEL 24 MEQ/L (21-32); CHLORIDE LEVEL 106 MEQ/L (98-107); CREATININE FOR GFR 0.78 MG/DL (0.55-1.02); GLOMERULAR FILTRATION RATE > 60.0 (>51); GLUCOSE, FASTING 115 MG/DL (70-100); SODIUM LEVEL 139 MEQ/L (136-145); TOTAL PROTEIN 7.3 GM/DL (6.4-8.2)
[2017-07-17 09:24] LABS: BEDSIDE GLUCOSE 104 MG/DL (70-105)
[2017-07-17] MEDS: LR 1,000 ML IV ×4 (09:24→23:16)
[2017-07-17] MEDS: ACETAMINOPHEN 650 MG SUPP As Ordered (11:00)
[2017-07-17] MEDS ORDERED: MIDAZOLAM INJ 2 MG/2 ML VIAL (J2250) As Ordered (11:03)
[2017-07-17] MEDS ORDERED: PROPOFOL 200 MG/20 ML VIAL As Ordered ×2 (11:03→11:04)
[2017-07-17] MEDS ORDERED: fentaNYL 250 MCG/5 ML INJECTION (J3010) As Ordered (11:03)
[2017-07-17] MEDS ORDERED: dexameTHASONE 4 MG/ML 1ML VIAL (J1100) As Ordered ×2 (11:04)
[2017-07-17] MEDS ORDERED: KETOROLAC 60 MG/2 ML VIAL (J1885) As Ordered (11:04)
[2017-07-17] MEDS ORDERED: ONDANSETRON 4MG/2ML VIAL (J2405) As Ordered (11:04)
[2017-07-17] MEDS ORDERED: GLYCOPYRROLATE INJ 0.2 MG/ML 2 ML VIAL As Ordered ×2 (11:04)
[2017-07-17] MEDS ORDERED: ROCURONIUM BROMIDE 50 MG/5 ML VIAL As Ordered ×3 (11:04→12:08)
[2017-07-17] MEDS ORDERED: METOCLOPRAMIDE INJ 10MG/2ML VIAL (J2765) As Ordered (11:04)
[2017-07-17] MEDS ORDERED: NEOSTIGMINE 10 MG/10 ML VIAL (J2710) As Ordered (11:04)
[2017-07-17] MEDS ORDERED: LIDOCAINE 2% INJ 100 MG/5 ML SYRINGE As Ordered (11:04)
[2017-07-17] MEDS ORDERED: PHENYLephrine HCL 500 MCG/5 ML (100MCG/ML) SYRINGE (J2370) As Ordered (11:18)
[2017-07-17] MEDS ORDERED: DESFLURANE 240 ML INHALANT As Ordered (11:26)
[2017-07-17] MEDS ORDERED: HYDROmorphone HCL 2 MG/ML 1ML VIAL (J1170) As Ordered (12:37)
[2017-07-17] MEDS: FLUORESCEIN 10% (100MG/ML) 5 ML VIAL As Ordered (13:02)
[2017-07-17] MEDS: BUPIVACAINE HCL 0.25% 30 ML VIAL As Ordered (13:29)
[2017-07-17] MEDS: LIDOCAINE W/EPINEPHRINE 1% 20ML VIAL As Ordered (13:29)
[2017-07-17] MEDS ORDERED: KETOROLAC 30 MG/ML VIAL (J1885) As Ordered (13:58)
[2017-07-17] MEDS ORDERED: SUGAMMADEX SODIUM 500 MG/5 ML VIAL (BRIDION) As Ordered (13:58)
[2017-07-17] MEDS ORDERED: PERCOCET 5MG/325MG TAB As Ordered (13:58)
[2017-07-17] MEDS: PERCOCET 5MG/325MG TAB PO ×2 (14:00→14:57)
[2017-07-17] MEDS: KETOROLAC 30 MG/ML VIAL (J1885) IV (14:07)
[2017-07-17] MEDS ORDERED: fentaNYL 100 MCG/2 ML INJECTION (J3010) IV (14:15)
[2017-07-17] MEDS ORDERED: ONDANSETRON 4MG/2ML VIAL (J2405) IV (14:15)
[2017-07-17] MEDS ORDERED: HYDROmorphone HCL 1 MG/ML SYRINGE (J1170) IV (14:15)
[2017-07-17] MEDS: SIMETHICONE 80 MG CHEW TAB PO ×2 (17:52→23:47)
[2017-07-17] MEDS ORDERED: IBUPROFEN 800 MG TAB PO (20:00)
[2017-07-17] MEDS: RIVAROXABAN 20 MG TAB (XARELTO) PO (21:27)
[2017-07-18] MEDS: SIMETHICONE 80 MG CHEW TAB PO ×2 (05:21→12:28)
[2017-07-18 05:49] LABS: BEDSIDE GLUCOSE 157 MG/DL (70-105)
[2017-07-18] MEDS: PERCOCET 5MG/325MG TAB PO (07:56)
[2017-07-18] MEDS: LR 1,000 ML IV (07:57)
[2017-07-18] MEDS ORDERED: RIVAROXABAN 20 MG TAB (XARELTO) PO (18:00)
== END 2017-07-18 13:00 | disposition home or self-care (01) ==
LOC: M SDC 08:06 → M MS5PR 15:17
DX: N92.0 Excessive and frequent menstruation with regular cycle (principal); D25.9 Leiomyoma of uterus, unspecified; N32.89 Other specified disorders of bladder; N73.6 Female pelvic peritoneal adhesions (postinfective); E66.01 Morbid (severe) obesity due to excess calories; J44.9 Chronic obstructive pulmonary disease, unspecified; I48.91 Unspecified atrial fibrillation; E11.9 Type 2 diabetes mellitus without complications; I42.9 Cardiomyopathy, unspecified; I10 Essential (primary) hypertension; M10.9 Gout, unspecified; E03.9 Hypothyroidism, unspecified; D64.9 Anemia, unspecified; F41.9 Anxiety disorder, unspecified; G47.30 Sleep apnea, unspecified; Z87.891 Personal history of nicotine dependence; Z79.899 Other long term (current) drug therapy; Z79.01 Long term (current) use of anticoagulants; Z79.84 Long term (current) use of oral hypoglycemic drugs
CPT/HCPCS: 58552

== ENCOUNTER → 2017-08-29 | Outpatient (REF) | payer OTHER ==
[2017-08-29 12:17] LABS: ANION GAP 9 MEQ/L (8-16); BLOOD UREA NITROGEN 12 MG/DL (7-18); CALCIUM LEVEL 7.6 MG/DL (8.5-10.1); CARBON DIOXIDE LEVEL 31 MEQ/L (21-32); CHLORIDE LEVEL 98 MEQ/L (98-107); CREATININE FOR GFR 0.92 MG/DL (0.55-1.30); GLOMERULAR FILTRATION RATE > 60.0 (>51); GLUCOSE, FASTING 104 MG/DL (70-100); POTASSIUM SERUM 3.3 MEQ/L (3.5-5.1); SODIUM LEVEL 138 MEQ/L (136-145)
[2017-08-29 16:23] LABS: BASO % 0.5 % (0.0-1.0); EOS # 0.1 10^3/uL (0.0-0.50); EOS % 1.6 % (0.0-3.0); HEMATOCRIT 38.5 % (36.0-47.0); HEMOGLOBIN 11.4 g/dl (12.0-16.0); IMMATURE GRANULOCYTE % 0.5 % (0-3.0); LYMPH # 1.1 10^3/uL (1.5-4.5); LYMPH % 19.5 % (24.0-44.0); MEAN CORPUSCULAR HEMOGLOBIN 23.4 pg (27.0-33.0); MEAN CORPUSCULAR HGB CONC 29.6 g/dl (32.0-36.5); MEAN CORPUSCULAR VOLUME 78.9 fl (80.0-96.0); MONO # 0.4 10^3/uL (0.0-0.8); MONO % 6.4 % (0.0-5.0); NEUTROPHILS % 71.5 % (36.0-66.0); PLATELET COUNT, AUTOMATED 300 10^3/uL (150-450); RED BLOOD COUNT 4.88 10^6/uL (4.00-5.40); RED CELL DISTRIBUTION WIDTH 14.5 % (11.5-14.5); WHITE BLOOD COUNT 5.6 10^3/uL (4.0-10.0)
[2017-08-29 18:25] LABS: ESTIMATED AVERAGE GLUCOSE 137 MG/DL (60-110); HEMOGLOBIN A1c 6.4 %
== END ==
LOC: M SFHCLERA 09:36
DX: B34.9 Viral infection, unspecified (principal); E11.9 Type 2 diabetes mellitus without complications; E03.9 Hypothyroidism, unspecified
CPT/HCPCS: 84443

== ENCOUNTER → 2017-11-25 | Outpatient (REF) | payer OTHER | LOC: M SFHCLERA 08:21 | DX: I10 Essential (primary) hypertension (principal) ==

== ENCOUNTER → 2018-04-15 | Outpatient (CLI) | payer OTHER ==
[2018-04-15 19:05] LABS: CHOLESTEROL LEVEL 107 MG/DL (<200); CHOLESTEROL RISK RATIO 2.276 (<5); HDL CHOLESTEROL 47 MG/DL (>40); LDL CHOLESTEROL 35 MG/DL (<100); NON-HDL-C 60 MG/DL; TRIGLYCERIDES LEVEL 125 MG/DL (<150)
[2018-04-15 23:23] LABS: MALB URINE SIEMENS 18.7 MG/L
[2018-04-15 23:32] LABS: MAU/CREAT RATIO 15.8 MCG/MG (0.0-30.0)
[2018-04-15 23:48] LABS: ESTIMATED AVERAGE GLUCOSE 140 MG/DL (60-110); HEMOGLOBIN A1c 6.5 %
== END ==
LOC: M WUC 09:46
DX: E11.9 Type 2 diabetes mellitus without complications (principal)
CPT/HCPCS: 83036

== ENCOUNTER → 2018-04-21 | Outpatient (CLI) | payer OTHER | LOC: M RAD 17:17 | DX: Z12.31 Encounter for screening mammogram for malignant neoplasm of breast (principal) | CPT/HCPCS: 77067 ==

== ENCOUNTER → 2018-05-22 | Outpatient (CLI) | payer OTHER | LOC: M RAD 16:12 | DX: M71.22 Synovial cyst of popliteal space [Baker], left knee (principal); M94.262 Chondromalacia, left knee; M17.12 Unilateral primary osteoarthritis, left knee; M25.562 Pain in left knee | CPT/HCPCS: 73721 ==

== ENCOUNTER → 2018-12-26 | Outpatient (REF) | payer OTHER, SELFPAY ==
[~2018-12-26] MED LIST changes: +HYDR-3715 PO; +LORA-243 PO; -LORA10TA2 PO; -METO-398 PO; +METO200T28 PO; -NORCOTAB PO; +PERC5TAB12 PO; +XARE15TA PO
[2018-12-26 14:43] LABS: BLOOD UREA NITROGEN 15 MG/DL (7-18); CALCIUM LEVEL 9.2 MG/DL (8.5-10.1); CARBON DIOXIDE LEVEL 31 MEQ/L (21-32); CHLORIDE LEVEL 102 MEQ/L (98-107); CREATININE FOR GFR 0.93 MG/DL (0.55-1.30); GLOMERULAR FILTRATION RATE > 60.0 (>51); GLUCOSE, FASTING 86 MG/DL (70-100); POTASSIUM SERUM 4.2 MEQ/L (3.5-5.1); SODIUM LEVEL 138 MEQ/L (136-145)
[2018-12-26 15:15] LABS: HEMOGLOBIN A1c 6.6 %
== END ==
LOC: M SFHCLERA 11:20
PROVIDERS: ATTEND Family Medicine
DX: E11.9 Type 2 diabetes mellitus without complications (principal); I10 Essential (primary) hypertension; E03.9 Hypothyroidism, unspecified

== ENCOUNTER → 2018-12-30 | Outpatient (CLI) | payer OTHER, SELFPAY ==
--- NOTE | 2018-12-30 22:01 | REP ---
Clinical: Pain and disability. Technique: AP, lateral, bilateral oblique views of the lumbosacral spine. Findings: Alignment and lordosis maintained. No acute fracture / compression injury or subluxation. Early moderate degenerative changes include endplate sclerosis, minimal disc space narrowing, marginal spurring and hypertrophic facet changes. No evidence for spondylolysis or spondylolisthesis. Impression: Early moderate multilevel degenerative changes. Electronically Signed by Isaias Woodson MD 12/30/2018 09:52 P
== END ==
LOC: M LRY 08:52
PROVIDERS: ATTEND Family Medicine
DX: M54.41 Lumbago with sciatica, right side (principal); M54.42 Lumbago with sciatica, left side; M51.37 Other intervertebral disc degeneration, lumbosacral region

== ENCOUNTER → 2019-07-29 | Outpatient (REF) | payer OTHER ==
[~2019-07-29] MED LIST changes: -DIGO0.25; -DIGO0.25 PO; +DIGO0.253; +DIGO0.253 PO
[2019-07-29 12:55] LABS: BLOOD UREA NITROGEN 12 MG/DL (7-18); CALCIUM LEVEL 8.5 MG/DL (8.5-10.1); CARBON DIOXIDE LEVEL 31 MEQ/L (21-32); CHLORIDE LEVEL 105 MEQ/L (98-107); CHOLESTEROL LEVEL 110 MG/DL (<200); CHOLESTEROL RISK RATIO 2.291 (<5); CREATININE FOR GFR 0.78 MG/DL (0.55-1.30); GLOMERULAR FILTRATION RATE > 60.0 (>51); GLUCOSE, FASTING 116 MG/DL (70-100); HDL CHOLESTEROL 48 MG/DL (>40); LDL CHOLESTEROL 39 MG/DL (<100); NON-HDL-C 62 MG/DL; POTASSIUM SERUM 4.2 MEQ/L (3.5-5.1); SODIUM LEVEL 140 MEQ/L (136-145); TRIGLYCERIDES LEVEL 114 MG/DL (<150)
[2019-07-29 13:01] LABS: HEMOGLOBIN A1c 6.2 %
== END ==
LOC: M SFHCLERA 08:03
PROVIDERS: ATTEND Family Medicine
DX: E11.9 Type 2 diabetes mellitus without complications (principal); E03.9 Hypothyroidism, unspecified

== ENCOUNTER 2020-04-02 18:18 | Emergency (ER) | payer BC, OTHER ==
[~2020-04-02] VITALS: Ht 162.6 cm; Wt 160.6 kg
[2020-04-02 18:20] VITALS: BP 173/81
== END 2020-04-02 19:15 | disposition home or self-care (01) ==
LOC: M ED 18:18
DX: S61.319A Laceration without foreign body of unspecified finger with damage to nail, initial encounter (principal); Y92.9 Unspecified place or not applicable; Y93.G1 Activity, food preparation and clean up; Y99.9 Unspecified external cause status; Z79.84 Long term (current) use of oral hypoglycemic drugs; Z79.899 Other long term (current) drug therapy; Z88.1 Allergy status to other antibiotic agents; Z88.2 Allergy status to sulfonamides

== ENCOUNTER → 2022-08-08 | Outpatient (CLI) | payer BC ==
[~2022-08-08] MED LIST changes: +BUPR-71; +BUPR150T12 PO; -BUPR150T3 PO; -BUPR150T5; +ESCI10TA16; -ESCI10TA2; +GABA-282; -MEGE40TA GT; -MEGE40TA PO; +MEGE40TA3 GT; +MEGE40TA3 PO
== END ==
LOC: M LABSMTC 09:19
PROVIDERS: ATTEND Anesthesiology
DX: Z01.812 Encounter for preprocedural laboratory examination (principal); Z11.52 Encounter for screening for COVID-19

== ENCOUNTER 2022-08-13 07:32 | Day surgery (SDC) | payer BC ==
[~2022-08-13] VITALS: Ht 160 cm; Wt 153.8 kg
[~2022-08-13 07:32] MED LIST changes: +NS 1,000 ML IV ONE
[2022-08-13] MEDS ORDERED: LIDOCAINE 2% 100MG/5ML SDV (FOR ANES.) As Ordered ONE (08:44)
[2022-08-13] MEDS ORDERED: propofoL 200 MG/20 ML VIAL As Ordered ONE ×3 (08:44→09:11)
[2022-08-13 09:54] VITALS: BP 184/88
== END 2022-08-13 09:56 | disposition home or self-care (01) ==
LOC: M OPP 07:32
PROVIDERS: ATTEND Internal Medicine Gastroenterology
DX: Z12.11 Encounter for screening for malignant neoplasm of colon (principal); D12.0 Benign neoplasm of cecum; D12.2 Benign neoplasm of ascending colon; D12.5 Benign neoplasm of sigmoid colon; D12.7 Benign neoplasm of rectosigmoid junction; K64.4 Residual hemorrhoidal skin tags; K64.8 Other hemorrhoids; E11.9 Type 2 diabetes mellitus without complications; I10 Essential (primary) hypertension; I80.9 Phlebitis and thrombophlebitis of unspecified site; I48.91 Unspecified atrial fibrillation; E03.9 Hypothyroidism, unspecified; Z79.01 Long term (current) use of anticoagulants; Z79.51 Long term (current) use of inhaled steroids; Z79.84 Long term (current) use of oral hypoglycemic drugs; Z79.890 Hormone replacement therapy; Z79.891 Long term (current) use of opiate analgesic; Z79.899 Other long term (current) drug therapy; Z99.89 Dependence on other enabling machines and devices; Z88.2 Allergy status to sulfonamides; Z83.79 Family history of other diseases of the digestive system; Z87.891 Personal history of nicotine dependence

== ENCOUNTER → 2023-06-03 | Outpatient (CLI) | payer BC ==
[~2023-06-03] MED LIST changes: -NS 1,000 ML IV ONE
[2023-06-03 12:19] LABS: BASO # 0.1 10^3/uL (0.0-0.2); BASO % 1.1 % (0.0-1.0); EOS # 0.2 10^3/uL (0.0-0.5); EOS % 2.6 % (0.0-3.0); HEMATOCRIT 45.9 % (36.0-47.0); HEMOGLOBIN 14.6 g/dl (12.0-15.5); LYMPH % 23.7 % (24.0-44.0); MEAN CORPUSCULAR HEMOGLOBIN 29.4 pg (27.0-33.0); MEAN CORPUSCULAR HGB CONC 31.8 g/dl (32.0-36.5); MEAN CORPUSCULAR VOLUME 92.4 fl (80.0-96.0); MONO # 0.4 10^3/uL (0.0-0.8); MONO % 4.2 % (2.0-8.0); NEUTROPHILS # 5.8 10^3/uL (1.5-8.5); PLATELET COUNT, AUTOMATED 293 10^3/uL (150-450); RED BLOOD COUNT 4.97 10^6/uL (4.00-5.40); WHITE BLOOD COUNT 8.5 10^3/uL (4.0-10.0)
[2023-06-03 12:40] LABS: HEMOGLOBIN A1c 5.1 % (4.0-6.0)
[2023-06-03 12:41] LABS: THYROID STIMULATING HORMONE 2.935 uIU/ML (0.55-4.78)
[2023-06-03 12:42] LABS: IRON (FE) 47 UG/DL (50-170); PERCENT SATURATION 14.2 % (13.2-45.0); TOTAL IRON BINDING CAPACITY 330 UG/DL (250-425)
[2023-06-03 12:43] LABS: FERRITIN 71.8 NG/ML (7.3-270.7); TOTAL 25(OH) VITAMIN D 30.5 NG/ML (20.0-100.0)
[2023-06-03 12:44] LABS: FOLATE > 24.00 NG/ML (>5.4); VITAMIN B12 LEVEL 467 PG/ML (211-911)
[2023-06-03 13:05] LABS: ALBUMIN 3.8 G/DL (3.2-5.2); ALKALINE PHOSPHATASE 60 U/L (46-116); ALT/SGPT 26 U/L (7.0-40); AST/SGOT 14 U/L (<34); BILIRUBIN,TOTAL 0.4 MG/DL (0.3-1.2); BLOOD UREA NITROGEN 11 MG/DL (9-23); CALCIUM LEVEL 9.5 MG/DL (8.5-10.1); CARBON DIOXIDE LEVEL 30 MMOL/L (20-31); CHLORIDE LEVEL 102 MMOL/L (98-107); CHOLESTEROL LEVEL 154 MG/DL (<200); CHOLESTEROL RISK RATIO 2.67 (<5); CREATININE FOR GFR 0.64 MG/DL (0.55-1.30); GLOMERULAR FILTRATION RATE > 60.0 (>51); GLUCOSE, FASTING 88 MG/DL (60-100); HDL CHOLESTEROL 57.6 MG/DL (>40); NON-HDL-C 96.4 MG/DL; POTASSIUM SERUM 3.9 MMOL/L (3.5-5.1); SODIUM LEVEL 142 MMOL/L (136-145); TOTAL PROTEIN 7.2 G/DL (5.7-8.2); TRIGLYCERIDES LEVEL 137 MG/DL (<150)
== END ==
LOC: M WUC 10:11
PROVIDERS: ATTEND Physician Assistant
DX: E11.69 Type 2 diabetes mellitus with other specified complication (principal); E66.9 Obesity, unspecified; Z98.84 Bariatric surgery status

== ENCOUNTER → 2023-12-31 | Outpatient (CLI) | payer BC ==
[~2023-12-31] MED LIST changes: +METO200T15 PO; -METO200T28 PO
[2023-12-31 16:28] LABS: BASO # 0.1 10^3/uL (0.0-0.2); BASO % 0.8 % (0.0-1.0); EOS # 0.2 10^3/uL (0.0-0.5); EOS % 2.1 % (0.0-3.0); HEMATOCRIT 42.9 % (36.0-47.0); LYMPH # 2.6 10^3/uL (1.5-5.0); LYMPH % 23.6 % (24.0-44.0); MEAN CORPUSCULAR HEMOGLOBIN 29.6 pg (27.0-33.0); MEAN CORPUSCULAR HGB CONC 32.6 g/dl (32.0-36.5); MEAN CORPUSCULAR VOLUME 90.7 fl (80.0-96.0); MONO # 0.5 10^3/uL (0.0-0.8); MONO % 4.8 % (2.0-8.0); NEUTROPHILS # 7.5 10^3/uL (1.5-8.5); NEUTROPHILS % 68.4 % (36.0-66.0); PLATELET COUNT, AUTOMATED 270 10^3/uL (150-450); RED BLOOD COUNT 4.73 10^6/uL (4.00-5.40); WHITE BLOOD COUNT 10.9 10^3/uL (4.0-10.0)
[2023-12-31 16:47] LABS: ALBUMIN 3.8 G/DL (3.2-5.2)
[2023-12-31 16:55] LABS: PERCENT SATURATION 10.6 % (13.2-45.0)
[2023-12-31 16:56] LABS: FERRITIN 29.2 NG/ML (7.3-270.7)
== END ==
LOC: M WUC 14:24
PROVIDERS: ATTEND Orthopaedic Surgery
DX: Z01.812 Encounter for preprocedural laboratory examination (principal); M16.9 Osteoarthritis of hip, unspecified; D63.8 Anemia in other chronic diseases classified elsewhere; E11.9 Type 2 diabetes mellitus without complications

== ENCOUNTER → 2024-06-26 | Outpatient (REF) | payer BC, OTHER ==
[~2024-06-26] MED LIST changes: +GABA-1172; -GABA-282
[2024-06-26 17:14] LABS: ALBUMIN 3.7 G/DL (3.2-5.2); ALKALINE PHOSPHATASE 58 U/L (35-104); ALT/SGPT 20 U/L (7.0-40); AST/SGOT 9 U/L (<34); BILIRUBIN,TOTAL 0.3 MG/DL (0.3-1.2); BLOOD UREA NITROGEN 14 MG/DL (9-23); CALCIUM LEVEL 9.7 MG/DL (8.5-10.1); CARBON DIOXIDE LEVEL 33 MMOL/L (20-31); CHLORIDE LEVEL 100 MMOL/L (98-107); CHOLESTEROL LEVEL 155 MG/DL (<200); CREATININE FOR GFR 0.74 MG/DL (0.55-1.30); GLOMERULAR FILTRATION RATE > 60.0 (>51); GLUCOSE, FASTING 78 MG/DL (60-100); HDL CHOLESTEROL 61.9 MG/DL (>40); LDL CHOLESTEROL 72.5 MG/DL (<100); NON-HDL-C 93.1 MG/DL; POTASSIUM SERUM 3.6 MMOL/L (3.5-5.1); SODIUM LEVEL 142 MMOL/L (136-145); TOTAL PROTEIN 7.2 G/DL (5.7-8.2); TRIGLYCERIDES LEVEL 103 MG/DL (<150)
[2024-06-26 17:16] LABS: THYROID STIMULATING HORMONE 1.743 uIU/ML (0.55-4.78)
[2024-06-26 17:37] LABS: HEMOGLOBIN A1c 5.1 % (4.0-6.0)
== END ==
LOC: M SFHCLERA 11:46
PROVIDERS: ATTEND Family Medicine
DX: E11.69 Type 2 diabetes mellitus with other specified complication (principal); E78.5 Hyperlipidemia, unspecified; E03.9 Hypothyroidism, unspecified

== ENCOUNTER → 2024-07-01 | Outpatient (REF) | payer OTHER ==
[2024-07-01 17:33] LABS: BASO # 0.1 10^3/uL (0.0-0.2); BASO % 0.9 % (0.0-1.0); EOS # 0.2 10^3/uL (0.0-0.5); EOS % 2.1 % (0.0-3.0); HEMATOCRIT 42.2 % (36.0-47.0); HEMOGLOBIN 13.6 g/dl (12.0-15.5); LYMPH # 2.1 10^3/uL (1.5-5.0); LYMPH % 23.3 % (24.0-44.0); MEAN CORPUSCULAR HEMOGLOBIN 28.9 pg (27.0-33.0); MEAN CORPUSCULAR HGB CONC 32.2 g/dl (32.0-36.5); MEAN CORPUSCULAR VOLUME 89.8 fl (80.0-96.0); MONO # 0.4 10^3/uL (0.0-0.8); MONO % 4.6 % (2.0-8.0); NEUTROPHILS # 6.2 10^3/uL (1.5-8.5); NEUTROPHILS % 68.9 % (36.0-66.0); PLATELET COUNT, AUTOMATED 225 10^3/uL (150-450)
[2024-07-01 17:58] LABS: CREATININE, URINE 139.2 MG/DL; MAU/CREAT RATIO 7.9 MCG/MG (0.0-30.0)
== END ==
LOC: M SFHCLERA 11:08
PROVIDERS: ATTEND Family Medicine
DX: Z01.818 Encounter for other preprocedural examination (principal); E11.69 Type 2 diabetes mellitus with other specified complication

== ENCOUNTER → 2024-10-26 | Outpatient (CLI) | payer OTHER | LOC: M SLEEP HO 11:25 | PROVIDERS: ATTEND Nurse Practitioner Adult Health | DX: G47.33 Obstructive sleep apnea (adult) (pediatric) (principal) ==

== ENCOUNTER → 2025-03-22 | Outpatient (CLI) | payer OTHER | LOC: M CARPUL 09:06 | PROVIDERS: ATTEND Physician Assistant | DX: I50.42 Chronic combined systolic (congestive) and diastolic (congestive) heart failure (principal); I42.0 Dilated cardiomyopathy; I48.91 Unspecified atrial fibrillation; I35.8 Other nonrheumatic aortic valve disorders; I31.39 Other pericardial effusion (noninflammatory) ==